=== PATIENT | female | born 1990 | race Caucasian/White ===

== ENCOUNTER 2022-10-04 08:33 | Emergency (ER) | payer BC, SELFPAY ==
--- NOTE | ~2022-10-04 | XR_ITS ---
EXAMINATION: XR foot LT min 3V DATE: 10/04/2022 09:05 INDICATION: Left foot injury and lateral swelling. TECHNIQUE: 4 views of left foot were obtained. COMPARISON: None. FINDINGS: There is a transverse fracture of base of fifth metatarsal in near-anatomic alignment. 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 IMPRESSION: 1. Transverse fracture of base of fifth metatarsal in near-anatomic alignment. Reviewed, dictated and finalized at location A.
[2022-10-04 08:40] VITALS: BP 150/93; PULSE 78; RESP 16; TEMP 36.4; O2SAT 100
[2022-10-04] MEDS: ACETAMINOPHEN 325 MG TABLET 650 MG PO (09:29)
--- NOTE | 2022-10-04 09:34 | ED.LOWEXIN ---
HPI - Extremity Injury (Lower) General Chief Complaint: Extremity Injury, Lower Stated Complaint: left foot pain - fell last night Time Seen by Provider: 10/04/22 08:39 History of Present Illness HPI Narrative: Patient is a 32-year-old female who presents ER with left foot pain. Fell yesterday evening after she got up from a nap and tripped over a couch. Sudden onset pain in the foot. Has been ambulating with a limp. No numbness or tingling. Bruising and swelling noted. Pain better with rest. Related Data Allergies Allergy/AdvReac Type Severity Reaction Status Date / Time iodine Allergy Unknown Verified 10/04/22 09:24 Review of Systems Musculoskeletal: Musculoskeletal: Denies back pain, Reports arthralgias and Reports joint swelling Integumentary/Breasts: Skin/Breast: Denies rash and Denies skin ulcer Comments: Bruising left foot Neurologic: Denies focal weakness and Denies numbness PMFSH Past Medical History Medical History (Updated 10/04/22 @ 09:40 by Aaron Lino MD) Healthy female adult Surgical History Surgical History (Updated 10/04/22 @ 09:35 by Aaron Lino MD) History of cholecystectomy Exam Narrative: GENERAL: Well-appearing, well-nourished, and in no acute distress. HEAD: Normocephalic, atraumatic. HEART: Regular rate and rhythm. Normal peripheral pulses. ABDOMEN: Soft, nontender, nondistended. EXTREMITIES: Left foot with swelling and bruising over the mid and lateral foot on the dorsal aspect. Tenderness over the base of fifth metatarsal. No ankle tenderness and normal range of motion. Dorsalis pedis pulses intact normal sensation. SKIN: Warm, dry, no rash. NEURO: Alert and oriented x3. PSYCH: Normal mood and affect. Course Course Emergency Course: Discussed case with Dr. Kirk. Patient be placed in a postop shoe with crutches and given follow-up. We will give some [place] for evening pain. Patient verbalized understanding treatment plan and is in agreement. Vital Signs Vital signs: Vital Signs Temperature 97.5 F L 10/04/22 08:40 Pulse Rate 78 10/04/22 08:40 Respiratory Rate 16 10/04/22 08:40 Blood Pressure 150/93 H 10/04/22 08:40 Pulse Oximetry 100 10/04/22 08:40 Temperature 97.5 F L 10/04/22 08:40 Pulse Rate 78 10/04/22 08:40 Respiratory Rate 16 10/04/22 08:40 Blood Pressure 150/93 H 10/04/22 08:40 Pulse Oximetry 100 10/04/22 08:40 MDM - Extremity Injury (Lower) Imaging Data Radiologist's impression: ITS Impressions Foot X-Ray 10/04/22 09:14 IMPRESSION: 1. Transverse fracture of base of fifth metatarsal in near-anatomic alignment. Discharge Plan Discharge Clinical Impression: Fracture of base of fifth metatarsal bone Patient Disposition: Home, Self-Care Condition: Stable Instructions: Foot Fracture in Adults (ED) Additional Instructions: Use crutches and do not bear weight on the affected foot. Follow-up with orthopedic surgery for further treatment and evaluation. Return the ER if you suffer new injury, you have chest pain or shortness of breath, you have additional concerns. Prescriptions: New hydrocodone-acetaminophen 5-325 mg tablet 1 tablet PO Q6H PRN (Reason: pain) Qty: 10 0RF Follow-up/Referrals: Skip Kirk MD [Physician] - 1 Week Yves,José Boyd MD [Primary Care Provider] - 1 Week
== END 2022-10-04 09:56 | disposition home or self-care (01) ==
PROVIDERS: Emergency Provider Emergency Medicine; PCP Internal Medicine Infectious Disease
DX: S92.352A Displaced fracture of fifth metatarsal bone, left foot, initial encounter for closed fracture (principal); W01.0XXA Fall on same level from slipping, tripping and stumbling without subsequent striking against object, initial encounter
CPT/HCPCS: 73630; 99283; A9270